=== PATIENT | female | born 1990 | race African-American/Black ===

== ENCOUNTER 2020-02-07 17:12 | Emergency (ER) | payer OTHER, SELFPAY ==
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
[2020-02-07 18:07] VITALS: BP 135/75; PULSE 60; RESP 18; TEMP 36.9; O2SAT 100
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
== END 2020-02-07 19:25 | disposition home or self-care (01) ==
PROVIDERS: Emergency Provider Nurse Practitioner
DX: M79.621 Pain in right upper arm (principal); V49.40XA Driver injured in collision with unspecified motor vehicles in traffic accident, initial encounter
CPT/HCPCS: 73060; 99213; G0463